=== PATIENT | male | born 1985 | race Hispanic/Latino ===

== ENCOUNTER → 2022-10-31 | Day surgery (SDC) | payer OTHER ==
[~2022-10-31] MED LIST: FENTANYL CITRATE/PF 100MCG/2 ML INJ ONE; HYDROXYZINE PAM25 MG PO; LACTATED RINGER'S 1,000 ML ONE; LIDOCAINE HCL 2% LOCAL INJ 5 ML SDV VIAL INJ ONE; PROPOFOL IV EMULSION 10 MG/ML 20 ML VIAL ONE; PROPOFOL IV EMULSION 50 ML IV ONE
[2022-10-31 09:02] VITALS: TEMP 98.1
[2022-10-31 09:30] VITALS: BP 131/93; PULSE 73; RESP 16; O2SAT 99
[2022-11-03 09:10] LABS: ENDOMYSIAL ANTIBODIES, IGA Negative (Negative)
== END | disposition home or self-care (01) ==
LOC: OR 06:35
PROVIDERS: ATTEND Internal Medicine Gastroenterology
DX: K29.50 Unspecified chronic gastritis without bleeding (principal); K31.7 Polyp of stomach and duodenum; K29.80 Duodenitis without bleeding; K21.00 Gastro-esophageal reflux disease with esophagitis, without bleeding; R19.7 Diarrhea, unspecified; Z71.3 Dietary counseling and surveillance; R63.4 Abnormal weight loss; G47.33 Obstructive sleep apnea (adult) (pediatric); M06.9 Rheumatoid arthritis, unspecified; Z71.89 Other specified counseling; Z68.41 Body mass index [BMI] 40.0-44.9, adult
CPT/HCPCS: 43239; 82784; 83516; 86256; C9113; J2001; J2704 ×2; J3010; J7121